=== PATIENT | female | born 1985 | race Caucasian/White ===

== ENCOUNTER 2018-08-05 19:20 | Emergency (ER) | payer OTHER ==
[~2018-08-05] VITALS: Ht 172.7 cm; Wt 110.2 kg
[2018-08-05 19:46] VITALS: Ht 172.7 cm; Wt 110.2 kg
[2018-08-05 22:50] VITALS: BP 123/72
== END 2018-08-05 22:50 | disposition home or self-care (01) ==
LOC: ED 19:20
DX: J06.9 Acute upper respiratory infection, unspecified (principal); I10 Essential (primary) hypertension; E11.9 Type 2 diabetes mellitus without complications; Z88.0 Allergy status to penicillin
CPT/HCPCS: J1885